=== PATIENT | male | born 1960 | race Caucasian/White ===

== ENCOUNTER 2017-09-30 18:33 | Inpatient (IN) | payer OTHER ==
[2017-09-30] MEDS ORDERED: Sodium Chloride 0.9% 10 ML Syringe FLUSH PRN ×2 (19:11→20:33)
--- NOTE | 2017-09-30 19:11 | EDM.PDOC ---
ED HPI GENERAL MEDICAL PROBLEM - General Chief Complaint: General Stated Complaint: unable to get object from bottom Time Seen by Provider: 09/30/17 18:41 Source of Information: Reports: Patient History Limitations: Reports: No Limitations - History of Present Illness INITIAL COMMENTS - FREE TEXT/NARRATIVE: 57-year-old male presents for evaluation and treatment of a foreign body stuck in the rectum. Reports it was placed yesterday morning. States the foreign body is about an 8 inch long dildo. Reports he is having discomfort while he is sitting. He has attempted to remove it and attempted to have a bowel movement but has been unsuccessful. Denies any blood from the rectum. Denies any fevers, chills, nausea or vomiting. This has occurred on one other occasion; required him to come to the ER. He does not recall currently went to the OR for removal or not. Rectal Pain Score (Numeric/FACES): 2 - Related Data Allergies Allergy/AdvReac Type Severity Reaction Status Date / Time No Known Allergies Allergy Verified 09/30/17 18:46 Home Meds: Home Meds . [No Known Home Meds] 09/30/17 [History] Past Medical History - Past Surgical History HEENT Surgical History: Reports: Oral Surgery, Tonsillectomy GI Surgical History: Reports: Appendectomy Social & Family History - Tobacco Use Smoking Status *Q: Current Every Day Smoker Years of Tobacco use: 45 Packs/Tins Daily: 0.5 - Caffeine Use Caffeine Use: Reports: Soda - Recreational Drug Use Recreational Drug Type: Reports: Marijuana/Hashish Recreational Drug Use Frequency: Weekly ED ROS GENERAL - Review of Systems Review Of Systems: See Below Constitutional: Reports: Decreased Appetite GI/Abdominal: Reports: Abdominal Pain (LLQ; reports foreign body in rectum). Denies: Nausea, Vomiting ED EXAM, GENERAL - Physical Exam Exam: See Below Exam Limited By: No Limitations General Appearance: Alert, WD/WN, No Apparent Distress Respiratory/Chest: No Respiratory Distress, Lungs Clear, Normal Breath Sounds Cardiovascular: Normal Peripheral Pulses, Regular Rate, Rhythm, No Murmur GI/Abdominal: Normal Bowel Sounds, Soft, Non-Tender Rectal (Males) Exam: Normal Exam, Normal Rectal Tone, Other (foreign body appreciated approximately 4cm from the anus). No: Black Stool, Bloody Stool Neurological: Alert, Oriented, Normal Cognition Psychiatric: Normal Affect, Normal Mood Skin Exam: Warm, Dry, Normal Color Course - Vital Signs Last Recorded V/S: Last Vital Signs Temp 36.0 C 09/30/17 18:45 Pulse 103 H 09/30/17 18:45 Resp 20 09/30/17 19:48 BP 146/84 H 09/30/17 18:45 Pulse Ox 97 09/30/17 19:48 - Orders/Labs/Meds Orders: Active Orders 24 hr Category Date Time Status Patient Status [ADT] Routine ADT 09/30/17 20:33 Active Ambulate [RC] ASDIRECTED Care 09/30/17 20:33 Active Communication Order [RC] ROUTINE Care 09/30/17 19:44 Active May Shower [RC] ASDIRECTED Care 09/30/17 20:33 Active Oxygen Therapy [RC] PRN Care 09/30/17 20:33 Active Patient to Empty Bladder [RC] ASDIRECTED Care 09/30/17 19:44 Active Peripheral IV Care [RC] . DIRECTED Care 09/30/17 19:11 Active Up ad Kourtney [RC] ASDIRECTED Care 09/30/17 20:33 Active Verify Patient Consent Obtain [RC] ASDIRECTED Care 09/30/17 19:44 Active Vital Signs [RC] PER UNIT ROUTINE Care 09/30/17 20:33 Active Nothing Per Oral Diet [DIET] Diet 09/30/17 Dinner Active Regular Diet [DIET] Diet 10/01/17 Breakfast Active KUB [Abdomen 1V Flat] [CR] Stat Exams 09/30/17 18:55 Taken CBC WITH AUTO DIFF [HEME] AM Lab 10/01/17 05:11 Ordered Acetaminophen [Tylenol] Med 09/30/17 20:33 Ordered 650 mg PO Q6H PRN Acetaminophen/HYDROcodone [[place] 325-5 MG] Med 09/30/17 20:33 Ordered 1 tab PO Q4H PRN Ertapenem [INVanz] 1 gm Med 10/01/17 09:00 Ordered Sodium Chloride 0.9% [Normal Saline] 100 ml IV DAILY Ertapenem [INVanz] 1 gm Med 09/30/17 19:44 Active Sodium Chloride 0.9% [Normal Saline] 100 ml IV ONETIME Morphine Med 09/30/17 20:33 Ordered 2 mg IVPUSH Q1H PRN Sodium Chloride 0.9% [Normal Saline] 1,000 ml Med 09/30/17 19:45 Active IV ASDIRECTED Sodium Chloride 0.9% [Saline Flush] Med 09/30/17 19:11 Active 10 ml FLUSH ASDIRECTED PRN Sodium Chloride 0.9% [Saline Flush] Med 09/30/17 20:33 Ordered 10 ml FLUSH ASDIRECTED PRN Antiembolic Hose [OM.PC] Routine Oth 09/30/17 19:44 Ordered Peripheral IV Insertion Adult [OM.PC] Routine Oth 09/30/17 19:11 Ordered Saline Lock Insert [OM.PC] Routine Oth 09/30/17 20:33 Ordered Schedule Procedure [COMM] Stat Oth 09/30/17 20:02 Ordered Resuscitation Status Routine Resus Stat 09/30/17 19:44 Ordered Medication Orders Acetaminophen (Tylenol) 650 mg PO Q6H PRN PRN Reason: Pain (mild 1-3) Hydrocodone Bitart/Acetaminophen ([place] 325-5 Mg) 1 tab PO Q4H PRN PRN Reason: Pain (moderate 4-6) Ertapenem 1 gm/ Sodium (Chloride) 100 mls @ 100 mls/hr IV ONETIME ONE Stop: 09/30/17 20:43 Last Admin: 09/30/17 19:58 Dose: 100 mls/hr Sodium Chloride (Normal Saline) 1,000 mls @ 125 mls/hr IV ASDIRECTED TALI Last Admin: 09/30/17 19:58 Dose: 125 mls/hr Ertapenem 1 gm/ Sodium (Chloride) 100 mls @ 200 mls/hr IV DAILY TALI Morphine Sulfate (Morphine) 2 mg IVPUSH Q1H PRN PRN Reason: Pain (severe 7-10) Stop: 10/01/17 20:34 Sodium Chloride (Saline Flush) 10 ml FLUSH ASDIRECTED PRN PRN Reason: Keep Vein Open Last Admin: 09/30/17 19:26 Dose: 10 ml Sodium Chloride (Saline Flush) 10 ml FLUSH ASDIRECTED PRN PRN Reason: Keep Vein Open Meds: Medications Generic Name Dose Route Start Last Admin Trade Name Freq PRN Reason Stop Dose Admin Acetaminophen 650 mg 09/30/17 20:33 Tylenol PO Q6H PRN Pain (mild 1-3) Hydrocodone Bitart/Acetaminophen 1 tab 09/30/17 20:33 [place] 325-5 Mg PO Q4H PRN Pain (moderate 4-6) Ertapenem 1 gm/ Sodium 100 mls @ 100 mls/hr 09/30/17 19:44 09/30/17 19:58 Chloride IV 09/30/17 20:43 100 mls/hr ONETIME ONE Administration Sodium Chloride 1,000 mls @ 125 mls/hr 09/30/17 19:45 09/30/17 19:58 Normal Saline IV 125 mls/hr ASDIRECTED TALI Administration Ertapenem 1 gm/ Sodium 100 mls @ 200 mls/hr 10/01/17 09:00 Chloride IV DAILY TALI Morphine Sulfate 2 mg 09/30/17 20:33 Morphine IVPUSH 10/01/17 20:34 Q1H PRN Pain (severe 7-10) Sodium Chloride 10 ml 09/30/17 19:11 09/30/17 19:26 Saline Flush FLUSH 10 ml ASDIRECTED PRN Administration Keep Vein Open Sodium Chloride 10 ml 09/30/17 20:33 Saline Flush FLUSH ASDIRECTED PRN Keep Vein Open Discontinued Medications Generic Name Dose Route Start Last Admin Trade Name Nenoq PRN Reason Stop Dose Admin Bupivacaine HCl/Epinephrine Bitart Confirm 09/30/17 19:53 Marcaine 0.5%/Epinephrine 1:200,000 Administered 09/30/17 19:54 Dose 50 ml .ROUTE .STK-MED ONE Lidocaine/Epinephrine Confirm 09/30/17 19:53 Xylocaine 1% With Epinephrine 1:100,000 Administered 09/30/17 19:54 Dose 20 ml .ROUTE .STK-MED ONE - Re-Assessments/Exams Free Text/Narrative Re-Assessment/Exam: 09/30/17 19:[address] Cabral, surgeon regional construction manager. He will come to the ER and examined the patient. Plan to take to the OR for foreign body removal. Patient reports he's had only water to drink for the last couple of days. Reports decreased appetite. Departure - Departure Time of Disposition: 19:30 Disposition: DC/Tfer to [facility] Condition: Fair Clinical Impression: Rectal foreign body Qualifiers: Encounter type: initial encounter Qualified Code(s): T18.5XXA - Foreign body in anus and rectum, initial encounter - Discharge Information - My Orders Last 24 Hours: My Active Orders 09/30/17 18:55 KUB [Abdomen 1V Flat] [CR] Stat 09/30/17 19:11 Peripheral IV Care [RC] . DIRECTED Sodium Chloride 0.9% [Saline Flush] 10 ml FLUSH ASDIRECTED PRN Peripheral IV Insertion Adult [OM.PC] Routine - Assessment/Plan Last 24 Hours: My Active Orders 09/30/17 18:55 KUB [Abdomen 1V Flat] [CR] Stat 09/30/17 19:11 Peripheral IV Care [RC] . DIRECTED Sodium Chloride 0.9% [Saline Flush] 10 ml FLUSH ASDIRECTED PRN Peripheral IV Insertion Adult [OM.PC] Routine
[2017-09-30] MEDS ORDERED: Ertapenem 1 GM in Sodium Chloride 0.9% 100 ML IV ONE (19:44)
--- NOTE | 2017-09-30 19:48 | PCM.PREANE ---
Preanesthetic Assessment - Procedure Proposed Procedure: Foreign body removal from rectum - Anesthesia/Transfusion/Family Hx Anesthesia History: Prior Anesthesia Without Reaction Family History of Anesthesia Reaction: No Transfusion History: No Prior Transfusion(s) - Review of Systems General: No Symptoms Pulmonary: No Symptoms Cardiovascular: No Symptoms Gastrointestinal: No Symptoms Neurological: No Symptoms Other: Reports: None - Physical Assessment NPO Status Date: 09/29/17 NPO Status Time: 21:00 O2 Sat by Pulse Oximetry: 97 Respiratory Rate: 20 Vital Signs: Last Vital Signs Temp 36.0 C 09/30/17 18:45 Pulse 103 H 09/30/17 18:45 Resp 20 09/30/17 18:45 BP 146/84 H 09/30/17 18:45 Pulse Ox 97 09/30/17 18:45 Height: 1.8 m Weight: 77.111 kg ASA Class: 2E Mental Status: Alert & Oriented x3 Dentition: Reports: Normal Dentition Thyro-Mental Finger Breadths: 3 Mouth Opening Finger Breadths: 3 ROM/Head Extension: Full Lungs: Clear to Auscultation, Normal Respiratory Effort Cardiovascular: Regular Rate, Regular Rhythm - Allergies Allergies/Adverse Reactions: Allergies Allergy/AdvReac Type Severity Reaction Status Date / Time No Known Allergies Allergy Verified 09/30/17 18:46 - Blood Blood Available: No Product(s) Available: None - Anesthesia Plan Pre-Op Medication Ordered: None - Acknowledgements Anesthesia Type Planned: General Anesthesia (if bowel is perforated ), MAC ( convert to general if bowel is perforated ) Pt an Appropriate Candidate for the Planned Anesthesia: Yes Alternatives and Risks of Anesthesia Discussed w Pt/Guardian: Yes Pt/Guardian Understands and Agrees with Anesthesia Plan: Yes PreAnesthesia Questionnaire - Past Surgical History HEENT Surgical History: Reports: Oral Surgery, Tonsillectomy GI Surgical History: Reports: Appendectomy - SUBSTANCE USE Smoking Status *Q: Current Every Day Smoker Tobacco Use Within Last Twelve Months: Cigarettes (45years 0.5ppd) Recreational Drug Type: Reports: Marijuana/Hashish (last time was about a week ago) - HOME MEDS Home Medications: Home Meds . [No Known Home Meds] 09/30/17 [History] - CURRENT (IN HOUSE) MEDS Current Meds: Current Medications Sodium Chloride (Saline Flush) 10 ml FLUSH ASDIRECTED PRN PRN Reason: Keep Vein Open Last Admin: 09/30/17 19:26 Dose: 10 ml
--- NOTE | 2017-09-30 19:52 | PCM.HP ---
H&P History of Present Illness - General Date of Service: 09/30/17 Source of Information: Patient, Provider History Limitations: Reports: No Limitations - History of Present Illness Initial Comments - Free Text/Narative: 57-year-old male was unable to retrieve a dildo from his rectum which he inserted over 36 hours ago. He was waiting for the device to pass but it didn' t. Earlier today he began to have mild left lower quadrant abdominal discomfort. It is not worse with movement. He presented to the emergency room for evaluation. Plain films of the abdomen and pelvis revealed a foreign body. There is no free air. The patient has had little appetite and denies nausea and vomiting. He's had no diarrhea or bleeding per rectum. He's had water over the past day or so but has not eaten. He denied fevers diaphoresis as well as chills. Rectal Pain Score (Numeric/FACES): 2 - Related Data Allergies/Adverse Reactions: Allergies Allergy/AdvReac Type Severity Reaction Status Date / Time No Known Allergies Allergy Verified 09/30/17 18:46 Home Medications: Home Meds . [No Known Home Meds] 09/30/17 [History] Past Medical History - Past Surgical History HEENT Surgical History: Reports: Oral Surgery, Tonsillectomy GI Surgical History: Reports: Appendectomy Social & Family History - Tobacco Use Smoking Status *Q: Current Every Day Smoker Years of Tobacco use: 45 Packs/Tins Daily: 0.5 - Caffeine Use Caffeine Use: Reports: Soda - Recreational Drug Use Recreational Drug Type: Reports: Marijuana/Hashish Recreational Drug Use Frequency: Weekly H&P Review of Systems - Review of Systems: Review Of Systems: ROS reveals no pertinent complaints other than HPI. Exam - Exam Exam: See Below - Vital Signs Vital Signs: Last Vital Signs Temp 36.0 C 09/30/17 18:45 Pulse 103 H 09/30/17 18:45 Resp 20 09/30/17 18:45 BP 146/84 H 09/30/17 18:45 Pulse Ox 97 09/30/17 18:45 Weight: 77.111 kg - Exam General: Alert, Oriented, Cooperative, Other (Slightly anxious about the event) HEENT: Conjunctiva Clear, EOMI, Hearing Intact Neck: Supple, Trachea Midline, Full Range of Motion Lungs: Clear to Auscultation, Normal Respiratory Effort Cardiovascular: Regular Rate, Regular Rhythm, Normal S1, Normal S2, Tachycardia GI/Abdominal Exam: Normal Bowel Sounds, Tender (Mild tenderness in the left lower quadrant without rigidity or guarding) (Male) Exam: Deferred Rectal (Males) Exam: Deferred Back Exam: Full Range of Motion Skin: Warm, Dry, Intact Psychiatric: Alert, Normal Affect, Normal Mood, Anxious - Problem List (1) Rectal foreign body SNOMED Code(s): 52505489 ICD Code: T18.5XXA - FOREIGN BODY IN ANUS AND RECTUM, INITIAL ENCOUNTER Status: Acute Priority: High Current Visit: Yes Qualifiers: Encounter type: initial encounter Qualified Code(s): T18.5XXA - Foreign body in anus and rectum, initial encounter (2) Abdominal pain due to injury SNOMED Code(s): 38565703, 327900821 ICD Code: R10.9 - UNSPECIFIED ABDOMINAL PAIN Status: Suspected Priority: High Current Visit: Yes Problem List Initiated/Reviewed/Updated: Yes Orders Last 24hrs: Active Orders 24 hr Category Date Time Status Communication Order [RC] ROUTINE Care 09/30/17 19:44 Ordered Patient to Empty Bladder [RC] ASDIRECTED Care 09/30/17 19:44 Ordered Peripheral IV Care [RC] . DIRECTED Care 09/30/17 19:11 Active Verify Patient Consent Obtain [RC] ASDIRECTED Care 09/30/17 19:44 Ordered Nothing Per Oral Diet [DIET] Diet 09/30/17 Dinner Ordered KUB [Abdomen 1V Flat] [CR] Stat Exams 09/30/17 18:55 Taken Ertapenem [INVanz] 1 gm Med 09/30/17 19:44 Ordered Sodium Chloride 0.9% [Normal Saline] 100 ml IV ONETIME Sodium Chloride 0.9% @ 125 MLS/HR (1000ml) Med 09/30/17 19:45 Ordered Sodium Chloride 0.9% [Normal Saline] 1,000 ml IV ASDIRECTED Sodium Chloride 0.9% [Saline Flush] Med 09/30/17 19:11 Active 10 ml FLUSH ASDIRECTED PRN Antiembolic Hose [OM.PC] Routine Oth 09/30/17 19:44 Ordered Peripheral IV Insertion Adult [OM.PC] Routine Oth 09/30/17 19:11 Ordered Schedule Procedure [COMM] Routine Oth 09/30/17 19:44 Ordered Resuscitation Status Routine Resus Stat 09/30/17 19:44 Ordered Medication Orders Sodium Chloride (Saline Flush) 10 ml FLUSH ASDIRECTED PRN PRN Reason: Keep Vein Open Last Admin: 09/30/17 19:26 Dose: 10 ml Assessment/Plan Comment:: Retained rectal foreign body which was unable to be retrieved by ED staff. His abdominal pain is worrisome for possible early perforation. I will remove the foreign body in the prone jackknife position after a perianal block. This will be followed by colonoscopy to look for perforation. If this is the case then I will proceed with a laparotomy with primary repair and possible ileostomy. I explained the planned procedures as well as the alternatives to the patient emphasizing the fact that he could have a bag for several weeks. He was hopeful that he would not need to have an ileostomy but agreed to have me proceed to do whatever I thought was best. In any event I will admit him to the hospital for IV antibiotics after the procedures.
[2017-09-30] MEDS ORDERED: Bupivacaine 0.5%/EPINEPHrine 1:200,000 50 ML MDV ONE (19:53)
[2017-09-30] MEDS ORDERED: Propofol 200 MG/20 ML SDV ONE (19:53)
[2017-09-30] MEDS ORDERED: Lidocaine 1% with EPINEPHrine 1:100,000 20 ML MDV ONE (19:53)
[2017-09-30] MEDS ORDERED: fentaNYL 100 MCG/2 ML SDV ONE (19:53)
[2017-09-30] MEDS ORDERED: Midazolam 1 MG/ML 2 ML SDV ONE (19:54)
[2017-09-30] MEDS ORDERED: Lidocaine 1% 4 ML ONE (19:56)
[2017-09-30] MEDS: Sodium Chloride 0.9% 1,000 ML IV SCH (19:58)
[2017-09-30] MEDS ORDERED: Acetaminophen 325 MG Tab PO PRN (20:33)
[2017-09-30] MEDS ORDERED: Morphine 2 MG/ML Syringe IVPUSH PRN (20:33)
[2017-09-30] MEDS ORDERED: Acetaminophen/HYDROcodone 325-5 MG Tab PO PRN (20:33)
--- NOTE | 2017-09-30 20:41 | PCM.OPNOTE ---
- General Post-Op/Procedure Note Date of Surgery/Procedure: 09/30/17 Operative Procedure(s): 1. Removal of rectal foreign body. 2. Sigmoidoscopy Findings: 21 cm dildo within the rectum resulting in superficial erosion of a focal area of the distal third of the rectum covered by exudate but no perforation of the rectum or sigmoid (visualized to 40 cm ) was observed. Pre Op Diagnosis: Rectal foreign body possible rectosigmoid perforation Post-Op Diagnosis: Rectal foreign body without obvious perforation Anesthesia Technique: Local, MAC, Moderate Sedation Primary Surgeon: Modesto Cabral Pathology: None EBL in mLs: 0 Complications: None Condition: Good Free Text/Narrative:: After adequate IV sedation and analgesia was obtained with monitoring the patient was placed in the prone jackknife position with his buttocks taped. A perianal block was performed with 30 mL of local analgesia. This provided relaxation followed by digital rectal examination in which I could palpate the foreign body. After slight finger dilatation to 3 fingers I then inserted a ring forcep and extracted the 21 cm dildo. I followed the extraction with a sigmoidoscopy to 40 cm. There was a 3 cm area of superficial erosion in the distal rectum focally with a whitish exudate. I didn't see a perforated viscus. Photographs were taken for the patient and for the medical record. Air was removed as I finished this part of the procedure and he tolerated both well.
[2017-09-30] MEDS ORDERED: diphenhydrAMINE 50 MG/ML SDV IVPUSH PRN (20:42)
[2017-09-30] MEDS ORDERED: fentaNYL 100 MCG/2 ML SDV IVPUSH PRN (20:42)
[2017-09-30] MEDS ORDERED: Ondansetron 4 MG/2 ML SDV IVPUSH PRN (20:42)
[2017-09-30] MEDS ORDERED: Meperidine PF 50 MG/ML Syringe IVPUSH PRN (20:42)
--- NOTE | 2017-09-30 20:42 | PCM.POSTAN ---
POST ANESTHESIA ASSESSMENT - MENTAL STATUS Mental Status: Somnolent - VITAL SIGNS Pulse Rate: 97 SaO2: 100 Resp Rate: 13 Blood Pressure: 108/65 Temperature: 36.6 C - RESPIRATORY Respiratory Status: Respiratory Rate WNL, Airway Patent, O2 Saturation Stable - CARDIOVASCULAR CV Status: Pulse Rate WNL, Blood Pressure Stable - GASTROINTESTINAL GI Status: No Symptoms - PAIN Pain Score: 0 - POST OP HYDRATION Hydration Status: Adequate & Stable
[2017-10-01] MEDS: Sodium Chloride 0.9% 1,000 ML IV SCH (04:38)
--- NOTE | 2017-10-01 08:55 | PCM.SURGPN ---
- General Info Date of Service: 10/01/17 POD#: 1 Functional Status: Reports: Pain Controlled, Tolerating Diet, Ambulating, Urinating - Review of Systems Gastrointestinal: Reports: Other (Lower abdominal discomfort now resolved completely.) - Patient Data Vitals - Most Recent: Last Vital Signs Temp 36.2 C 09/30/17 21:36 Pulse 71 10/01/17 04:35 Resp 20 09/30/17 21:36 BP 107/67 10/01/17 04:35 Pulse Ox 93 L 10/01/17 04:35 Weight - Most Recent: 73.482 kg I&O - Last 24 Hours: Intake & Output 09/30/17 10/01/17 10/01/17 22:59 06:59 14:59 Intake Total 350 1303 Output Total 700 Balance 350 603 Lab Results Last 24 Hrs: Laboratory Results - last 24 hr 10/01/17 Range/Units 05:58 WBC 10.41 H (4.23-9.07) K/mm3 RBC 4.72 (4.63-6.08) M/mm3 Hgb 14.3 (13.7-17.5) gm/L Hct 42.9 (40.1-51.0) % MCV 90.9 (79.0-92.2) fl MCH 30.3 (25.7-32.2) pg MCHC 33.3 (32.2-35.5) g/dl RDW Std Deviation 43.8 (35.1-43.9) fL Plt Count 329 (163-337) K/mm3 MPV 9.4 (9.4-12.3) fl Neut % (Auto) 56.4 (34.0-67.9) % Lymph % (Auto) 32.2 (21.8-53.1) % [place] % (Auto) 8.3 (5.3-12.2) % Eos % (Auto) 2.8 (0.8-7.0) Baso % (Auto) 0.1 (0.1-1.2) % Neut # (Auto) 5.88 H (1.78-5.38) K/mm3 Lymph # (Auto) 3.35 (1.32-3.57) K/mm3 [place] # (Auto) 0.86 H (0.30-0.82) K/mm3 Eos # (Auto) 0.29 (0.04-0.54) K/mm3 Baso # (Auto) 0.01 (0.01-0.08) K/mm3 Med Orders - Current: Current Medications Acetaminophen (Tylenol) 650 mg PO Q6H PRN PRN Reason: Pain (mild 1-3) Hydrocodone Bitart/Acetaminophen ([place] 325-5 Mg) 1 tab PO Q4H PRN PRN Reason: Pain (moderate 4-6) Diphenhydramine HCl (Benadryl) 25 mg IVPUSH Q6H PRN PRN Reason: Pruritis Fentanyl (Sublimaze) 50 mcg IVPUSH Q5M PRN PRN Reason: Pain Sodium Chloride (Normal Saline) 1,000 mls @ 125 mls/hr IV ASDIRECTED TALI Last Admin: 10/01/17 04:38 Dose: 125 mls/hr Ertapenem 1 gm/ Sodium (Chloride) 100 mls @ 200 mls/hr IV Q24H TALI Meperidine HCl (Demerol) 12.5 mg IVPUSH ONETIME PRN PRN Reason: Shivering Morphine Sulfate (Morphine) 2 mg IVPUSH Q1H PRN PRN Reason: Pain (severe 7-10) Stop: 10/01/17 20:34 Ondansetron HCl (Zofran) 4 mg IVPUSH ONETIME PRN PRN Reason: Nausea/Vomiting Sodium Chloride (Saline Flush) 10 ml FLUSH ASDIRECTED PRN PRN Reason: Keep Vein Open Last Admin: 09/30/17 19:26 Dose: 10 ml Sodium Chloride (Saline Flush) 10 ml FLUSH ASDIRECTED PRN PRN Reason: Keep Vein Open Discontinued Medications Bupivacaine HCl/Epinephrine Bitart (Marcaine 0.5%/Epinephrine 1:200,000) Confirm Administered Dose 50 ml .ROUTE .STK-MED ONE Stop: 09/30/17 19:54 Last Admin: 09/30/17 20:14 Dose: 15 ml Ertapenem 1 gm/ Sodium (Chloride) 100 mls @ 100 mls/hr IV ONETIME ONE Stop: 09/30/17 20:43 Last Admin: 09/30/17 19:58 Dose: 100 mls/hr Lidocaine/Epinephrine (Xylocaine 1% With Epinephrine 1:100,000) Confirm Administered Dose 20 ml .ROUTE .STK-MED ONE Stop: 09/30/17 19:54 Last Admin: 09/30/17 20:14 Dose: 15 ml - Exam GI/Abdominal Exam: Normal Bowel Sounds, Soft, Non-Tender - Problem List & Annotations (1) Rectal foreign body SNOMED Code(s): 88930575 Code(s): T18.5XXA - FOREIGN BODY IN ANUS AND RECTUM, INITIAL ENCOUNTER Status: Resolved Priority: High Current Visit: Yes Qualifiers: Encounter type: initial encounter Qualified Code(s): T18.5XXA - Foreign body in anus and rectum, initial encounter (2) Abdominal pain due to injury SNOMED Code(s): 04293806, 255952501 Code(s): R10.9 - UNSPECIFIED ABDOMINAL PAIN Status: Resolved Priority: High Current Visit: Yes - Problem List Review Problem List Initiated/Reviewed/Updated: Yes - My Orders Last 24 Hours: Active Orders 24 hr Category Date Time Status Patient Status [ADT] Routine ADT 09/30/17 20:33 Active Ambulate [RC] ASDIRECTED Care 09/30/17 20:33 Active Cooling Warming Measures [RC] ASDIRECTED Care 09/30/17 20:42 Active May Shower [RC] ASDIRECTED Care 09/30/17 20:33 Active Notify Provider [RC] ASDIRECTED Care 09/30/17 20:42 Active Oxygen Therapy [RC] PRN Care 09/30/17 20:33 Active Patient to Empty Bladder [RC] ASDIRECTED Care 09/30/17 19:44 Active Pulse Oximetry [RC] ASDIRECTED Care 09/30/17 20:42 Active Ready for Discharge [RC] PER UNIT ROUTINE Care 10/01/17 08:53 Ordered Up ad Kourtney [RC] ASDIRECTED Care 09/30/17 20:33 Active Regular Diet [DIET] Diet 10/01/17 Breakfast Active KUB [Abdomen 1V Flat] [CR] Stat Exams 09/30/17 18:55 Taken Acetaminophen [Tylenol] Med 09/30/17 20:33 Active 650 mg PO Q6H PRN Acetaminophen/HYDROcodone [[place] 325-5 MG] Med 09/30/17 20:33 Active 1 tab PO Q4H PRN Ertapenem [INVanz] 1 gm Med 10/01/17 20:00 Active Sodium Chloride 0.9% [Normal Saline] 100 ml IV Q24H Meperidine [Demerol] Med 09/30/17 20:42 Active 12.5 mg IVPUSH ONETIME PRN Morphine Med 09/30/17 20:33 Active 2 mg IVPUSH Q1H PRN Ondansetron [Zofran] Med 09/30/17 20:42 Active 4 mg IVPUSH ONETIME PRN Sodium Chloride 0.9% [Normal Saline] 1,000 ml Med 09/30/17 19:45 Active IV ASDIRECTED Sodium Chloride 0.9% [Saline Flush] Med 09/30/17 19:11 Active 10 ml FLUSH ASDIRECTED PRN Sodium Chloride 0.9% [Saline Flush] Med 09/30/17 20:33 Active 10 ml FLUSH ASDIRECTED PRN diphenhydrAMINE [Benadryl] Med 09/30/17 20:42 Active 25 mg IVPUSH Q6H PRN fentaNYL [Sublimaze] Med 09/30/17 20:42 Active 50 mcg IVPUSH Q5M PRN Antiembolic Hose [OM.PC] Routine Oth 09/30/17 19:44 Ordered Peripheral IV Insertion Adult [OM.PC] Routine Oth 09/30/17 19:11 Ordered Saline Lock Insert [OM.PC] Routine Oth 09/30/17 20:33 Ordered Schedule Procedure [COMM] Stat Oth 09/30/17 20:02 Ordered Resuscitation Status Routine Resus Stat 09/30/17 19:44 Ordered Medication Orders Acetaminophen (Tylenol) 650 mg PO Q6H PRN PRN Reason: Pain (mild 1-3) Hydrocodone Bitart/Acetaminophen ([place] 325-5 Mg) 1 tab PO Q4H PRN PRN Reason: Pain (moderate 4-6) Diphenhydramine HCl (Benadryl) 25 mg IVPUSH Q6H PRN PRN Reason: Pruritis Fentanyl (Sublimaze) 50 mcg IVPUSH Q5M PRN PRN Reason: Pain Sodium Chloride (Normal Saline) 1,000 mls @ 125 mls/hr IV ASDIRECTED TALI Last Admin: 10/01/17 04:38 Dose: 125 mls/hr Infusion: 10/01/17 03:58 Dose: 125 mls/hr Admin: 09/30/17 19:58 Dose: 125 mls/hr Ertapenem 1 gm/ Sodium (Chloride) 100 mls @ 200 mls/hr IV Q24H TALI Meperidine HCl (Demerol) 12.5 mg IVPUSH ONETIME PRN PRN Reason: Shivering Morphine Sulfate (Morphine) 2 mg IVPUSH Q1H PRN PRN Reason: Pain (severe 7-10) Stop: 10/01/17 20:34 Ondansetron HCl (Zofran) 4 mg IVPUSH ONETIME PRN PRN Reason: Nausea/Vomiting Sodium Chloride (Saline Flush) 10 ml FLUSH ASDIRECTED PRN PRN Reason: Keep Vein Open Last Admin: 09/30/17 19:26 Dose: 10 ml Sodium Chloride (Saline Flush) 10 ml FLUSH ASDIRECTED PRN PRN Reason: Keep Vein Open - Assessment Assessment (Free Text/Narrative):: Doing well. - Plan Plan (Free Text/Narrative):: Ready for discharge.
--- NOTE | 2017-10-01 08:56 | PCM.DCSUM1 ---
Discharge Summary - Hospital Course Free Text/Narrative:: Presented to the emergency room with a retained rectal foreign body. - Discharge Data Discharge Date: 10/01/17 Discharge Disposition: Home, Self-Care 01 Condition: Good - Discharge Diagnosis/Problem(s) (1) Rectal foreign body SNOMED Code(s): 83091180 ICD Code: T18.5XXA - FOREIGN BODY IN ANUS AND RECTUM, INITIAL ENCOUNTER Status: Resolved Priority: High Current Visit: Yes Qualifiers: Encounter type: initial encounter Qualified Code(s): T18.5XXA - Foreign body in anus and rectum, initial encounter (2) Abdominal pain due to injury SNOMED Code(s): 01023525, 282563784 ICD Code: R10.9 - UNSPECIFIED ABDOMINAL PAIN Status: Resolved Priority: High Current Visit: Yes - Patient Summary/Data Operative Procedure(s) Performed: 1. Removal of rectal foreign body. 2. Sigmoidoscopy Complications: none Recommended Follow-up Testing/Procedures: When necessary Hospital Course: Uneventful. - Patient Instructions Diet: Usual Diet as Tolerated Activity: As Tolerated, Rest and Relax Today Driving: May Drive Today Showering/Bathing: May Shower Notify Provider of: Fever, Increased Pain, Nausea and/or Vomiting - Discharge Plan Home Medications: Home Meds . [No Known Home Meds] 09/30/17 [History] Forms: ED Department Discharge Referrals: PCP,None [Primary Care Provider] - - Discharge Summary/Plan Comment DC Time >30 min.: No Discharge Summary/Plan Comment: Follow with his primary care provider if necessary. Instructions given to the patient. - Patient Data Vitals - Most Recent: Last Vital Signs Temp 36.2 C 09/30/17 21:36 Pulse 71 10/01/17 04:35 Resp 20 09/30/17 21:36 BP 107/67 10/01/17 04:35 Pulse Ox 93 L 10/01/17 04:35 Weight - Most Recent: 73.482 kg I&O - Last 24 hours: Intake & Output 09/30/17 10/01/17 10/01/17 22:59 06:59 14:59 Intake Total 350 1303 Output Total 700 Balance 350 603 Lab Results - Last 24 hrs: Laboratory Results - last 24 hr 10/01/17 Range/Units 05:58 WBC 10.41 H (4.23-9.07) K/mm3 RBC 4.72 (4.63-6.08) M/mm3 Hgb 14.3 (13.7-17.5) gm/L Hct 42.9 (40.1-51.0) % MCV 90.9 (79.0-92.2) fl MCH 30.3 (25.7-32.2) pg MCHC 33.3 (32.2-35.5) g/dl RDW Std Deviation 43.8 (35.1-43.9) fL Plt Count 329 (163-337) K/mm3 MPV 9.4 (9.4-12.3) fl Neut % (Auto) 56.4 (34.0-67.9) % Lymph % (Auto) 32.2 (21.8-53.1) % Stewart % (Auto) 8.3 (5.3-12.2) % Eos % (Auto) 2.8 (0.8-7.0) Baso % (Auto) 0.1 (0.1-1.2) % Neut # (Auto) 5.88 H (1.78-5.38) K/mm3 Lymph # (Auto) 3.35 (1.32-3.57) K/mm3 Stewart # (Auto) 0.86 H (0.30-0.82) K/mm3 Eos # (Auto) 0.29 (0.04-0.54) K/mm3 Baso # (Auto) 0.01 (0.01-0.08) K/mm3 Med Orders - Current: Current Medications Acetaminophen (Tylenol) 650 mg PO Q6H PRN PRN Reason: Pain (mild 1-3) Hydrocodone Bitart/Acetaminophen ([place] 325-5 Mg) 1 tab PO Q4H PRN PRN Reason: Pain (moderate 4-6) Diphenhydramine HCl (Benadryl) 25 mg IVPUSH Q6H PRN PRN Reason: Pruritis Fentanyl (Sublimaze) 50 mcg IVPUSH Q5M PRN PRN Reason: Pain Sodium Chloride (Normal Saline) 1,000 mls @ 125 mls/hr IV ASDIRECTED TALI Last Admin: 10/01/17 04:38 Dose: 125 mls/hr Ertapenem 1 gm/ Sodium (Chloride) 100 mls @ 200 mls/hr IV Q24H TALI Meperidine HCl (Demerol) 12.5 mg IVPUSH ONETIME PRN PRN Reason: Shivering Morphine Sulfate (Morphine) 2 mg IVPUSH Q1H PRN PRN Reason: Pain (severe 7-10) Stop: 10/01/17 20:34 Ondansetron HCl (Zofran) 4 mg IVPUSH ONETIME PRN PRN Reason: Nausea/Vomiting Sodium Chloride (Saline Flush) 10 ml FLUSH ASDIRECTED PRN PRN Reason: Keep Vein Open Last Admin: 09/30/17 19:26 Dose: 10 ml Sodium Chloride (Saline Flush) 10 ml FLUSH ASDIRECTED PRN PRN Reason: Keep Vein Open Discontinued Medications Bupivacaine HCl/Epinephrine Bitart (Marcaine 0.5%/Epinephrine 1:200,000) Confirm Administered Dose 50 ml .ROUTE .ROKT-[employer] ONE Stop: 09/30/17 19:54 Last Admin: 09/30/17 20:14 Dose: 15 ml Ertapenem 1 gm/ Sodium (Chloride) 100 mls @ 100 mls/hr IV ONETIME ONE Stop: 09/30/17 20:43 Last Admin: 09/30/17 19:58 Dose: 100 mls/hr Lidocaine/Epinephrine (Xylocaine 1% With Epinephrine 1:100,000) Confirm Administered Dose 20 ml .ROUTE .STK-MED ONE Stop: 09/30/17 19:54 Last Admin: 09/30/17 20:14 Dose: 15 ml
--- NOTE | 2017-10-01 14:14 | CR ---
Abdomen: Supine view of the abdomen was obtained. Foreign body is projected within the pelvis presumably rectal in location. Bony structures show slight degenerative change within the spine. Bowel gas pattern is normal. Impression: 1. Foreign body presumably rectal in location. 2. Supine abdominal x-ray is otherwise unremarkable. Diagnostic code #3
[2017-10-01] MEDS ORDERED: Ertapenem 1 GM in Sodium Chloride 0.9% 100 ML IV SCH (20:00)
== END 2017-10-01 09:33 | disposition home or self-care (01) | DRG 394 ==
LOC: JD.ED 18:33 → JD.SDS 19:59 → JD.MS 20:33
PROVIDERS: ADMIT Surgery; ATTEND Surgery
PROC: 0DCP7ZZ Extirpation of Matter from Rectum, Via Natural or Artificial Opening (ICD-10-PCS; principal; 2017-09-30)
PROC: 0DJD8ZZ Inspection of Lower Intestinal Tract, Via Natural or Artificial Opening Endoscopic (ICD-10-PCS; 2017-09-30)
DX: T18.5XXA Foreign body in anus and rectum, initial encounter (principal); K62.6 Ulcer of anus and rectum; F17.210 Nicotine dependence, cigarettes, uncomplicated; X58.XXXA Exposure to other specified factors, initial encounter
CPT/HCPCS: 00811; 36415; 74018; 74018-26; 85025; 96374; 99284; 99285-25; J1335; J2001; J2250; J2704; J3010; J7030; J7040; J7050